=== PATIENT | male | born 1935 | race Caucasian/White ===

== ENCOUNTER 2016-12-18 02:20 | Emergency (ER) | payer MEDICARE, OTHER ==
[2016-12-18] MEDS ORDERED: ALBUTEROL SULFATE/IPRATROPIUM 3 ML NEBU IH ONE ×2 (02:23→02:24)
[2016-12-18 02:35] LABS: Hematocrit 52.3 % (42.0-52.0); Hemoglobin 17.3 gm/dL (13.5-18.0); Mean Cell Volume 89.1 fl (78-100); Mean Corpuscular Hemoglobin 29.5 pg (27-31); Mean Corpuscular Hgb Conc 33.1 g/dl (32-36); Mean Platelet Volume 9.1 fl (6.0-9.5); Neutrophil # 4.2 K/mm3 (1.3-6.0); Neutrophil % 52.5 % (42-75.0); Platelet Count 248 K/mm3 (150-450); Red Blood Count 5.87 M/mm3 (4.7-6.0); Red Cell Distribution Width 14.4 % (11.5-14.0)
--- NOTE | 2016-12-18 02:44 | ERNOTE ---
Dyspnea - General Presenting Symptoms: shortness of breath Time Seen by Provider: 12/18/16 02:23 Source: patient Exam Limitations: no limitations - Immun/Allergies/Home Medications Allergies/Adverse Reactions: Allergies No Known Allergies Allergy (Verified 12/18/16 02:29) Home Medications: HOME MEDICATIONS Albuterol Sulfate [Proair Hfa] 1 - 2 puff IH Q4H PRN 12/18/16 [Last Taken Unknown] Azithromycin 250 mg PO DAILY #4 tablet 12/18/16 [Last Taken Unknown] Methylprednisolone [Medrol Dosepak] 4 mg PO DAILY #21 tab.ds.pk 12/18/16 [Last Taken Unknown] - History of Present Illness Narrative: Pt states he has been short of breath since last Wednesday and has gotten worse. 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 Absent: fever EYE: Present: no symptoms reported ENT: Present: no symptoms reported Respiratory: Present: See HPI, shortness of breath, cough Cardiology: Absent: chest pain Gastrointestinal/Abdominal: Absent: nausea, vomiting Genitourinary: Present: no symptoms reported Musculoskeletal: Present: no symptoms reported Skin: Present: no symptoms reported Neurological: Present: no symptoms reported Endocrine: Present: no symptoms reported Hematologic/Lymphatic: Present: no symptoms reported Psych: Present: no symptoms reported - Patient's Past Medical History Patient History - Cardiac/Respiratory: COPD - Family History Father Family History - Medical: Family History - Cardiac/Respiratory: COPD Family History - Cancer: No pertinent family hx Physical Exam - Physical Exam General Appearance: Present: wd/wn, alert, moderate distress, anxious Head Exam: Present: normal inspection, no evidence of injury Eye Exam: Normal inspection: bilateral Ears, Nose, Throat: Present: normal ENT inspection Neck: Present: normal inspection, nontender Respiratory: Present: respiratory distress, accessory muscle use, rhonchi, wheezing Cardiovascular/Chest: Present: regular rate, rhythm, no murmur, normal peripheral pulses Back Exam: Present: normal inspection, normal range of motion Extremity Exam: Present: normal inspection, normal range of motion, no edema Neurological Exam: Present: alert, oriented, normal mood/affect, no motor/ sensory deficits Skin Exam: Present: normal color, warm/dry Lymphatic Exam: Present: no adenopathy ED Progress - Results and Orders Patient's Lab Results:: I have reviewed the patient's lab results. Results and Orders: Laboratory Tests 12/18/16 12/18/16 02:24 02:24 WBC 8.0 Hgb 17.3 Hct 52.3 H Plt Count 248 Sodium 140 Potassium 4.3 Chloride 104 Carbon Dioxide 26.7 BUN 21 Creatinine 1.40 Random Glucose 112 H Calcium 9.0 Total Bilirubin 0.5 AST 16 ALT 16 L Alkaline Phosphatase 95 Troponin I Less than 0.017 Total Protein 7.5 Albumin 3.7 - EKG EKG: supraventricular tachycardia, RBBB EKG read: Interp. by me - X-Ray X-Ray #1 X-Ray: chest Interpretation: Interp. by me X-ray Comments: Changes of COPD. No infiltrate or effusion - Progress/Reassessment Progress:: Improved Progress Note-Subjective: 12/18/16 03:45 pt breathing much better. no wheezes. Departure Clinical Impression: Acute exacerbation of chronic obstructive pulmonary disease (COPD) - Departure Disposition: Home Follow Up Needed Condition: Good Instructions: Chronic Obstructive Pulmonary Disease Exacerbation, [id number] Additional Instructions: See your primary care provider in a week for follow up. Take advantage of pulmonary rehab to help increase your lung capacity. Take your medications until gone. Prescriptions: Azithromycin 250 mg PO DAILY #4 tablet Methylprednisolone [Medrol Dosepak] 4 mg PO DAILY #21 tab.ds.pk
[2016-12-18 02:53] LABS: ALT 16 U/L (19-67); AST 16 U/L (0-48); Albumin * 3.7 gm/dl (3.4-5.0); Alkaline Phosphatase * 95 U/L (50-170); Anion Gap 13.6 mmol/L (6.8-13.8); Bilirubin, Total 0.5 mg/dL (0.0-1.1); Blood Urea Nitrogen 21 mg/dL (6-23); Ca. Corrected For Albumin 8.9 mg/dL (8.4-10.2); Carbon Dioxide 26.7 mmol/L (24-32.6); Chloride 104 mmol/L (97-106); Glucose * 112 mg/dL (70-110); Potassium 4.3 mmol/L (3.4-4.6); Sodium 140 mmol/L (132-142); Total Protein 7.5 gm/dL (6.2-8.2)
[2016-12-18 02:55] LABS: Troponin I Less than 0.017 ng/ml (0.00-0.10)
[2016-12-18] MEDS ORDERED: METHYLPREDNISOLONE SOD SUCC/PF 125 MG/2 ML VIAL IV ONE (03:26)
[2016-12-18] MEDS ORDERED: METHYLPREDNISOLONE SOD SUCC/PF 125 MG/2 ML VIAL ONE (03:27)
[2016-12-18] MEDS ORDERED: AZITHROMYCIN 250 MG TABLET PO ONE (03:50)
[2016-12-18] MEDS ORDERED: AZITHROMYCIN 250 MG TABLET ONE (03:54)
[2016-12-18 04:11] VITALS: BP 160/88
== END 2016-12-18 04:02 | disposition home or self-care (01) ==
LOC: ER 02:20
DX: J44.1 Chronic obstructive pulmonary disease with (acute) exacerbation (principal)

== ENCOUNTER 2017-02-03 07:50 | Emergency (ER) | payer MEDICARE, OTHER ==
[2017-02-03] MEDS ORDERED: ALBUTEROL SULFATE/IPRATROPIUM 3 ML NEBU IH ONE ×2 (07:54→08:04)
[2017-02-03] MEDS ORDERED: DEXAMETHASONE SOD PHOSPHATE 10 MG/ML VIAL IM ONE (08:10)
[2017-02-03] MEDS ORDERED: ALBUTEROL SULFATE 2.5 MG/0.5 ML VIAL.NEB IH ONE ×2 (08:16→08:19)
[2017-02-03] MEDS ORDERED: DEXAMETHASONE SOD PHOSPHATE 10 MG/ML VIAL ONE (08:16)
[2017-02-03 08:26] LABS: Hemoglobin 15.5 gm/dL (13.5-18.0); Mean Cell Volume 89.7 fl (78-100); Mean Corpuscular Hemoglobin 29.6 pg (27-31); Mean Platelet Volume 8.4 fl (6.0-9.5); Neutrophil # 5.3 K/mm3 (1.3-6.0); Platelet Count 306 K/mm3 (150-450); Red Blood Count 5.24 M/mm3 (4.7-6.0); Red Cell Distribution Width 14.5 % (11.5-14.0); White Blood Count 9.6 K/mm3 (4.0-10.5)
--- NOTE | 2017-02-03 08:26 | ERNOTE ---
Dyspnea - Date Date of Service: 02/03/17 - General Presenting Symptoms: shortness of breath, difficulty of breathing Time Seen by Provider: 02/03/17 08:15 Source: patient, family - Immun/Allergies/Home Medications Immunizations: IMMUNIZATION HX Immunizations Up to Date No History of Influenza Vaccine No Hx Pneumococcal Vaccination No Allergies/Adverse Reactions: Allergies No Known Allergies Allergy (Verified 02/03/17 08:03) Home Medications: HOME MEDICATIONS Albuterol Sulfate [Proair Hfa] 1 - 2 puff IH Q4H PRN 12/18/16 [Last Taken Unknown] Methylprednisolone [Medrol Dosepak] 4 mg PO DAILY #21 tab.ds.pk 02/03/17 [Last Taken Unknown] - History of Present Illness Narrative: Patient is a 41-year-old white male who presents to the emergency room with acute dyspneic episode that started last night. Apparently his dyspnea has gotten worse over the past 3 days. Patient has a past medical history significant for COPD. He is not a smoker currently he quit some years ago. COPD exacerbation was 6 weeks ago. Patient was seen had the emergency room and given antibiotics and a Medrol Dosepak. He presents today complaining of difficulty breathing. He also reports being lightheaded but this is not new for him. In addition dyspnea appears to be chronic for him but is Worse over the past 3 days. 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 Absent: cough, orthopnea, wheezing, stridor Cardiology: Present: See HPI Gastrointestinal/Abdominal: Present: See HPI Genitourinary: Present: See HPI Musculoskeletal: Present: See HPI Skin: Present: See HPI Neurological: Present: See HPI Endocrine: Present: See HPI Hematologic/Lymphatic: Present: See HPI Psych: Present: See HPI - Patient's Past Medical History Patient History - Cardiac/Respiratory: COPD Patient History - Cancer: No Hx of Cancer Patient History - Surgical Procedures: T & A Patient History - Other: None - Family History Father Family History - Medical: Family History - Cardiac/Respiratory: COPD Family History - Cancer: No pertinent family hx - Social History Living Situations: home Abuse History: No History of abuse Psych History: Hx of Depression Alcohol Use: none Drug Use: none - Immunizations Immunizations Up to Date: No Hx Pneumococcal Vaccination: No History of Influenza Vaccine: No Physical Exam - Physical Exam General Appearance: Present: mild distress Head Exam: Present: normal inspection, no evidence of injury Eye Exam: Normal inspection: bilateral, PERRL: bilateral, EOMI: bilateral Ears, Nose, Throat: Present: normal ENT inspection Neck: Present: normal inspection, nontender Respiratory: Present: accessory muscle use, decreased breath sounds, expiration (prolonged) Cardiovascular/Chest: Present: no murmur, tachycardia Gastrointestinal/Abdominal: Present: normal bowel sounds, nontender, nondistended Back Exam: Present: normal inspection, normal range of motion, no CVA tenderness , no vertebral tenderness Extremity Exam: Present: normal inspection Neurological Exam: Present: alert, oriented, normal mood/affect, no motor/ sensory deficits ED Progress - Results and Orders Patient's Lab Results:: I have reviewed the patient's lab results. - Vital Signs Patient's Vital Signs:: I have reviewed the patient's vital signs. Vital Signs: Vital Signs 02/03/17 02/03/17 02/03/17 07:54 08:09 08:11 Temperature 36.2 C L Pulse Rate 114 H 114 H 114 H Respiratory 24 H 24 H Rate Blood Pressure 150/93 O2 Sat by Pulse 93 94 Oximetry - EKG EKG: other - sinus tachycardia with right bundle branch block. There is no EKG for comparison EKG read: Reviewed by me - X-Ray X-Ray #1 X-Ray: chest Interpretation: Reviewed by me - Progress/Reassessment Chief Complaint: Dyspnea Progress:: Improved Progress Note-Subjective: 02/03/17 09:22 Patient seen and examined. Patient during his emergency room stay received DuoNeb 1 and albuterol times one. During my assessment he was shaking and tremors likely due to the side effects of albuterol. Subjectively he felt better. Patient is taking Anoro. He has been noncompliant with his Spiriva though. Also has been noncompliant with his albuterol with spacer. I did provide some education regarding his needs to continue his albuterol which spaces every 6 hours. Also recommended starting him on prednisone 50 mg by mouth daily for 10 days but he preferred the Medrol Dosepak. Was seated and prescribe his Medrol Dosepak. He is tachycardic at this point. His blood work appeared unremarkable as was his chest x-ray. There is no pneumonic process going. It is likely due to his dyspnea. All side effect of his albuterol. Regardless we'll proceed at discharge patient and have her follow up with his insurance adjuster tomorrow 02/03/17 09:41 We ambulated the patient in the emergency room without oxygen and he appears to be saturating in the 94%. He wasn't hypoxic Departure Clinical Impression: COPD with acute exacerbation - Departure Disposition: Home self-care Condition: Stable Instructions: Chronic Obstructive Pulmonary Disease Exacerbation, [id number] Prescriptions: Methylprednisolone [Medrol Dosepak] 4 mg PO DAILY #21 tab.ds.pk
[2017-02-03 08:37] LABS: Albumin * 3.4 gm/dl (3.4-5.0); Anion Gap 11.8 mmol/L (6.8-13.8); BUN/Creatinine Ratio 13.8 (9.0-21.6); Bilirubin, Total 0.4 mg/dL (0.0-1.1); Ca. Corrected For Albumin 9.4 mg/dL (8.4-10.2); Calcium * 9.2 mg/dL (7.9-10.9); Carbon Dioxide 28.2 mmol/L (24-32.6); Total Protein 7.5 gm/dL (6.2-8.2)
[2017-02-03 09:21] VITALS: BP 109/61
== END 2017-02-03 09:59 | disposition home or self-care (01) ==
LOC: ER 07:50
DX: J44.1 Chronic obstructive pulmonary disease with (acute) exacerbation (principal); Z87.891 Personal history of nicotine dependence

== ENCOUNTER 2020-05-19 18:58 | Observation (INO) ==
[2020-05-19] MEDS ORDERED: ALBUTEROL SULFATE/IPRATROPIUM 3 ML NEBU IH ONE (19:19)
[2020-05-19] MEDS ORDERED: METHYLPREDNISOLONE SOD SUCC/PF 125 MG/2 ML VIAL IV ONE (19:19)
--- NOTE | 2020-05-19 19:25 | ERNOTE ---
Dyspnea - Date Date of Service: 05/19/20 - General Presenting Symptoms: shortness of breath Time Seen by Provider: 05/19/20 19:03 Source: patient Exam Limitations: no limitations - Immun/Allergies/Home Medications Immunizations: IMMUNIZATION HX Immunizations Up to Date Yes History of Influenza Vaccine Yes Hx Pneumococcal Vaccination Yes Allergies/Adverse Reactions: Allergies No Known Allergies Allergy (Verified 05/19/20 19:12) Home Medications: HOME MEDICATIONS Albuterol Sulfate [Albuterol Sulfate 2.5 MG/0.5ML] 1 vial IH Q4H #30 vial 09/14/17 [Last Taken Unknown] Albuterol Sulfate/Ipratropium [Duoneb 2.5-0.5MG/3ML Soln] 3 ml IH QID #150 vial 11/06/17 [Last Taken Unknown] Albuterol Sulfate [Albuterol Sulfate 0.63 MG/3ML] 0.63 mg IH Q4H PRN #120 vial[email or web address] 03/27/20 [Last Taken Unknown] Budesonide 1 mg IH Q6H PRN #40 ampul.[email or web address] 03/27/20 [Last Taken Unknown] predniSONE [Prednisone] 5 mg PO DAILY 05/19/20 [Last Taken Unknown] - History of Present Illness Narrative: Patient presents to the ED for SOB. He states this is just like when his COPD acts up. He relates he will get steroids and feel better. This has been worsening over a couple of days. SOB with exertion. When he walked in here he apparently had significant work of breathing and sat in the 80s. Now better with rest. Some cough, no fever. No hemoptysis. No calf pain or leg swelling. Not on home O2. Relates overall progressive SOB for years then gets acute bouts like this. No chest pain but lung tightness. Has not seen anyone else for this bout. No calf pain or leg swelling. 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 Denies: fever/chills, sweating, chest pain/discomfort, leg/calf pain Prior Treatment: Reports: previous episodes. Denies: recently seen Review of Systems - Review of Systems Constitutional: Absent: fever EYE: Present: no symptoms reported ENT: Absent: sore throat Respiratory: Present: See HPI Cardiology: Absent: chest pain Gastrointestinal/Abdominal: Absent: abdominal pain Genitourinary: Absent: dysuria All Other Systems: All systems neg except as marked Medical History (Last Reviewed 05/19/20 @ 19:23 by Sánchez Post MD) COPD (chronic obstructive pulmonary disease) Hx of fracture of ankle Pneumonia Surgical History: Surgical History (Last Reviewed 05/19/20 @ 19:23 by Sánchez oPst MD) History of prostate surgery History of tonsillectomy and adenoidectomy Previous back surgery Family History: Family History (Last Reviewed 05/19/20 @ 19:23 by Sánchez Post MD) Other Family history non-contributory Social History: (Last Reviewed 05/19/20 @ 19:23 by Sánchez Post MD) Social History: adopted: No foster care: No assisted: No Marital status: lives independently: Yes household members: spouse current occupational status: retired Tobacco: Smoking Status: Former smoker Years smoked: 60 Years smoked comment: pt states he quit 2 years ago Alcohol: alcohol intake: never Substance Use: substance use type: does not use Physical Exam - Physical Exam General Appearance: Present: alert, other - mild tachypnea Head Exam: Present: normal inspection, no evidence of injury Eye Exam: Normal inspection: bilateral, PERRL: bilateral Ears, Nose, Throat: Present: normal ENT inspection Neck: Present: normal inspection Respiratory: Present: other - mild tachypnea, scattered faint wheezes. Cardiovascular/Chest: Present: regular rate, rhythm, normal peripheral pulses Gastrointestinal/Abdominal: Present: normal bowel sounds, nontender, nondistended, soft Back Exam: Absent: CVA tenderness (R), CVA tenderness (L) Extremity Exam: Absent: pedal edema Neurological Exam: Present: alert, no motor/sensory deficits Skin Exam: Present: normal color, warm/dry. Absent: pallor Progress - Results and Orders Patient's Lab Results:: I have reviewed the patient's lab results. - Vital Signs Patient's Vital Signs:: I have reviewed the patient's vital signs. Vital Signs: Vital Signs 05/19/20 18:59 05/19/20 19:19 Temperature 36.6 C Pulse Rate 107 H 96 Respiratory Rate 21 H Blood Pressure 189/106 H O2 Sat by Pulse Oximetry 80 L - EKG EKG #1 EKG: NSR EKG read: Interp. by me EKG Comments: NSR rate 98 with ectopy. RBBB, no clear evidence of STEMI - Progress/Reassessment Chief Complaint: Dyspnea - Transfer of Care Physician Sign Out: Sánchez Post Receiving Physician: Vinayak Gomez Pending Results: Labs, X-ray results Departure Clinical Impression: COPD exacerbation - Departure Disposition: Still a patient Condition: Fair Referrals: Taty Piña MD [Primary Care Provider] -
[2020-05-19] MEDS ORDERED: ALBUTEROL SULFATE 2.5 MG/0.5 ML VIAL.NEB IH ONE (19:45)
[2020-05-19 19:51] LABS: Hematocrit 50.8 % (42.0-52.0); Hemoglobin 16.5 gm/dL (13.5-18.0); Mean Cell Volume 89.3 fl (78-100); Mean Corpuscular Hgb Conc 32.5 g/dl (32-36); Mean Platelet Volume 9.1 fl (8-11.3); Neutrophil # 8.4 K/mm3 (1.3-6.0); Neutrophil % 69.2 % (42-75.0); Platelet Count 288 K/mm3 (150-450); Red Blood Count 5.69 M/mm3 (4.7-6.0); Red Cell Distribution Width 15.7 % (11.5-14.0); White Blood Count 12.1 K/mm3 (4.0-10.5)
[2020-05-19 20:10] LABS: Troponin I Less than 0.017 ng/mL (0.00-0.10)
[2020-05-19 20:11] LABS: ALT 21 U/L (19-67); AST 32 U/L (0-48); Albumin * 3.7 gm/dl (3.4-5.0); Alkaline Phosphatase * 78 U/L (50-170); Anion Gap 15.5 mmol/L (6.8-13.8); BNP * 349 pg/mL (5-650); BUN/Creatinine Ratio 14.4 (9.0-21.6); Bilirubin, Total 0.6 mg/dL (0.0-1.1); Blood Urea Nitrogen 26 mg/dL (6-23); Ca. Corrected For Albumin 9.6 mg/dL (8.4-10.2); Calcium * 9.7 mg/dL (7.9-10.9); Carbon Dioxide 26.7 mmol/L (24-32.6); Chloride 103 mmol/L (97-106); Glucose * 114 mg/dL (70-110); Potassium 4.2 mmol/L (3.4-4.6); Sodium 141 mmol/L (132-142); Total Protein 7.4 gm/dL (6.2-8.2)
[2020-05-19] MEDS ORDERED: NORMAL SALINE 1,000 ML IV ONE (20:48)
[2020-05-19] MEDS ORDERED: cefTRIAXone SODIUM 1,000 MG/100 ML BAG IV ONE (21:25)
[2020-05-19] MEDS ORDERED: AZITHROMYCIN 250 MG TABLET PO ONE (23:04)
[2020-05-20] MEDS: NORMAL SALINE 1,000 ML IV PRN ×2 (00:10→08:32)
[2020-05-20] MEDS ORDERED: BUDESONIDE 0.5 MG/2 ML VIAL.NEB IH PRN (07:32)
[2020-05-20] MEDS: ALBUTEROL SULFATE/IPRATROPIUM 3 ML NEBU IH SCH ×3 (07:52→14:25)
[2020-05-20] MEDS ORDERED: NORMAL SALINE 500 ML IV ONE (08:39)
[2020-05-20 08:57] LABS: Albumin * 3.3 gm/dl (3.4-5.0); Anion Gap 17.7 mmol/L (6.8-13.8); BUN/Creatinine Ratio 15.2 (9.0-21.6); Bilirubin, Total 0.4 mg/dL (0.0-1.1); Calcium * 8.8 mg/dL (7.9-10.9); Carbon Dioxide 22.7 mmol/L (24-32.6); Potassium 5.4 mmol/L (3.4-4.6); Total Protein 6.2 gm/dL (6.2-8.2)
[2020-05-20] MEDS ORDERED: predniSONE 20 MG TABLET PO SCH (09:00)
[2020-05-20] MEDS ORDERED: AZITHROMYCIN 250 MG TABLET PO SCH (09:00)
--- NOTE | 2020-05-20 09:35 | HP ---
Chief Complaint - Chief Complaint Date of Service: 05/20/20 Time of Service: 08:50 Chief Complaint: shortness of breath, cough Medical History (Last Reviewed 05/19/20 @ 23:43 by Olivia Pierce RN) COPD (chronic obstructive pulmonary disease) Hx of fracture of ankle Pneumonia Surgical History: Surgical History (Last Reviewed 05/19/20 @ 23:43 by Olivia Pierce RN) History of prostate surgery History of tonsillectomy and adenoidectomy Previous back surgery Family History: Family History (Last Reviewed 05/19/20 @ 23:43 by Olivia Pierce RN) Other Family history non-contributory Social History: (Last Reviewed 05/19/20 @ 23:43 by Olivia Pierce RN) Social History: adopted: No foster care: No alf: No Marital status: lives independently: Yes household members: spouse current occupational status: retired Tobacco: Smoking Status: Former smoker Years smoked: 60 Years smoked comment: pt states he quit 2 years ago Alcohol: alcohol intake: never Substance Use: substance use type: does not use Immunizations: IMMUNIZATION HX Immunizations Up to Date Yes History of Influenza Vaccine Yes Hx Pneumococcal Vaccination Yes Allergies/Adverse Reactions: Allergies Allergy/AdvReac Type Severity Reaction Status Date / Time No Known Allergies Allergy Verified 05/19/20 19:12 Home Medications: HOME MEDICATIONS Albuterol Sulfate [Albuterol Sulfate 2.5 MG/0.5ML] 1 vial IH Q4H #30 vial 09/14/17 [Last Taken 05/19/20] Albuterol Sulfate/Ipratropium [Duoneb 2.5-0.5MG/3ML Soln] 3 ml IH QID #150 vial 11/06/17 [Last Taken 05/19/20] Albuterol Sulfate [Albuterol Sulfate 0.63 MG/3ML] 0.63 mg IH Q4H PRN #120 vial.neb 03/27/20 [Last Taken 05/19/20] Budesonide 1 mg IH Q6H PRN #40 ampul.neb 03/27/20 [Last Taken 05/19/20] predniSONE [Prednisone] 5 mg PO DAILY 05/19/20 [Last Taken 05/19/20] Exam - Exam Vital Signs: Vital Signs - Last Taken Temp 36.6 C 05/20/20 07:16 Pulse 96 05/20/20 07:52 Resp 24 H 05/20/20 07:52 BP 176/93 H 05/20/20 07:16 Pulse Ox 95 05/20/20 07:52 Diagnostic Studies: Abnormal Lab Results 05/19/20 05/19/20 05/19/20 Range/Units 19:05 19:05 19:05 WBC 12.1 H (4.0-10.5) K/mm3 RDW 15.7 H (11.5-14.0) % Immature Gran % (Auto) 0.60 H (0.001-0.429) % Immature Gran # (Auto) 0.07 H (0.000-0.0310) K/mm3 Lymphocytes % 15.4 L (20-51) % Monocytes % 9.4 H (0.0-9) % Eosinophils % 4.3 H (0.0-3.0) % Basophils % 1.1 H (0.0-1.0) % Neutrophils # 8.4 H (1.3-6.0) K/mm3 Monocytes # 1.1 H (0.0-1.0) k/mm3 Plasma Sodium (130-142) mmol/L Potassium (3.4-4.6) mmol/L Chloride (97-106) mmol/L Carbon Dioxide (24-32.6) mmol/L Anion Gap 15.5 H (6.8-13.8) mmol/L BUN 26 H (6-23) mg/dL Creatinine 1.80 H (0.4-1.4) mg/dL Est GFR (Non-Af Amer) 39 L (60-130) mL/min Random Glucose 114 H (70-110) mg/dL Lactic Acid, Venous 2.3 H* (0.4-2.0) mmol/L Albumin (3.4-5.0) gm/dl Procalcitonin (0.05-0.50) ng/mL 05/19/20 05/20/20 05/20/20 Range/Units 22:45 08:00 08:03 WBC (4.0-10.5) K/mm3 RDW (11.5-14.0) % Immature Gran % (Auto) (0.001-0.429) % Immature Gran # (Auto) (0.000-0.0310) K/mm3 Lymphocytes % (20-51) % Monocytes % (0.0-9) % Eosinophils % (0.0-3.0) % Basophils % (0.0-1.0) % Neutrophils # (1.3-6.0) K/mm3 Monocytes # (0.0-1.0) k/mm3 Plasma Sodium 143 H (130-142) mmol/L Potassium 5.4 H D (3.4-4.6) mmol/L Chloride 107 H (97-106) mmol/L Carbon Dioxide 22.7 L (24-32.6) mmol/L Anion Gap 17.7 H (6.8-13.8) mmol/L BUN 25 H (6-23) mg/dL Creatinine 1.64 H (0.4-1.4) mg/dL Est GFR (Non-Af Amer) 43 L (60-130) mL/min Random Glucose 163 H D (70-110) mg/dL Lactic Acid, Venous 2.1 H (0.4-2.0) mmol/L Albumin 3.3 L (3.4-5.0) gm/dl Procalcitonin Less than 0.05 L (0.05-0.50) ng/mL 05/20/20 Range/Units 08:03 WBC (4.0-10.5) K/mm3 RDW (11.5-14.0) % Immature Gran % (Auto) (0.001-0.429) % Immature Gran # (Auto) (0.000-0.0310) K/mm3 Lymphocytes % (20-51) % Monocytes % (0.0-9) % Eosinophils % (0.0-3.0) % Basophils % (0.0-1.0) % Neutrophils # (1.3-6.0) K/mm3 Monocytes # (0.0-1.0) k/mm3 Plasma Sodium (130-142) mmol/L Potassium (3.4-4.6) mmol/L Chloride (97-106) mmol/L Carbon Dioxide (24-32.6) mmol/L Anion Gap (6.8-13.8) mmol/L BUN (6-23) mg/dL Creatinine (0.4-1.4) mg/dL Est GFR (Non-Af Amer) (60-130) mL/min Random Glucose (70-110) mg/dL Lactic Acid, Venous 3.5 H* (0.4-2.0) mmol/L Albumin (3.4-5.0) gm/dl Procalcitonin (0.05-0.50) ng/mL Laboratory Results WBC 12.1 K/mm3 (4.0-10.5) H 05/19/20 19:05 RBC 5.69 M/mm3 (4.7-6.0) 05/19/20 19:05 Hgb 16.5 gm/dL (13.5-18.0) 05/19/20 19:05 Hct 50.8 % (42.0-52.0) 05/19/20 19:05 MCV 89.3 fl (78-100) 05/19/20 19:05 MCH 29.0 pg (27-31) 05/19/20 19:05 MCHC 32.5 g/dl (32-36) 05/19/20 19:05 RDW 15.7 % (11.5-14.0) H 05/19/20 19:05 Plt Count 288 K/mm3 (150-450) 05/19/20 19:05 MPV 9.1 fl (8-11.3) 05/19/20 19:05 Immature Gran % (Auto) 0.60 % (0.001-0.429) H 05/19/20 19:05 Immature Gran # (Auto) 0.07 K/mm3 (0.000-0.0310) H 05/19/20 19:05 Neutrophils % 69.2 % (42-75.0) 05/19/20 19:05 Lymphocytes % 15.4 % (20-51) L 05/19/20 19:05 Monocytes % 9.4 % (0.0-9) H 05/19/20 19:05 Eosinophils % 4.3 % (0.0-3.0) H 05/19/20 19:05 Basophils % 1.1 % (0.0-1.0) H 05/19/20 19:05 Nucleated RBC % 0.0 k/mm3 (0-1) 05/19/20 19:05 Neutrophils # 8.4 K/mm3 (1.3-6.0) H 05/19/20 19:05 Lymphocytes # 1.86 k/mm3 (1.5-3.5) 05/19/20 19:05 Monocytes # 1.1 k/mm3 (0.0-1.0) H 05/19/20 19:05 Eosinophils # 0.5 k/mm3 (0.0-0.7) 05/19/20 19:05 Absolute Basophils 0.1 k/mm3 (0.0-0.1) 05/19/20 19:05 Sodium 142 mmol/L (132-142) 05/20/20 08:03 Plasma Sodium 143 mmol/L (130-142) H 05/20/20 08:03 Potassium 5.4 mmol/L (3.4-4.6) H D 05/20/20 08:03 Chloride 107 mmol/L (97-106) H 05/20/20 08:03 Carbon Dioxide 22.7 mmol/L (24-32.6) L 05/20/20 08:03 Anion Gap 17.7 mmol/L (6.8-13.8) H 05/20/20 08:03 BUN 25 mg/dL (6-23) H 05/20/20 08:03 Creatinine 1.64 mg/dL (0.4-1.4) H 05/20/20 08:03 Est GFR (Non-Af Amer) 43 mL/min (60-130) L 05/20/20 08:03 BUN/Creatinine Ratio 15.2 (9.0-21.6) 05/20/20 08:03 Random Glucose 163 mg/dL (70-110) H D 05/20/20 08:03 Lactic Acid, Venous 3.5 mmol/L (0.4-2.0) H* 05/20/20 08:03 Calcium 8.8 mg/dL (7.9-10.9) 05/20/20 08:03 Calcium Adj for Albumin 9.0 mg/dL (8.4-10.2) 05/20/20 08:03 Total Bilirubin 0.4 mg/dL (0.0-1.1) 05/20/20 08:03 AST 26 U/L (0-48) 05/20/20 08:03 ALT 19 U/L (19-67) 05/20/20 08:03 Alkaline Phosphatase 71 U/L (50-170) 05/20/20 08:03 Troponin I Less than 0.017 ng/mL (0.00-0.10) 05/19/20 19:05 B-Natriuretic Peptide 349 pg/mL (5-650) 05/19/20 19:05 Total Protein 6.2 gm/dL (6.2-8.2) 05/20/20 08:03 Albumin 3.3 gm/dl (3.4-5.0) L 05/20/20 08:03 Procalcitonin Less than 0.05 ng/mL (0.05-0.50) L 05/20/20 08:00 SARS-CoV-2 (PCR) Not detected (NotDetected) 05/19/20 21:31
[2020-05-20] MEDS: ALBUTEROL SULFATE 2.5 MG/0.5 ML VIAL.NEB IH SCH ×2 (11:29→14:26)
--- NOTE | 2020-05-20 14:17 | HPDIS ---
Chief Complaint - Chief Complaint Date of Service: 05/20/20 Time of Service: 09:30 Chief Complaint: SOB, cough History of Present Illness: Patient with PMHx of COPD presented to our ED after a week of increased SOB and cough. He has SOB at baseline, but it worsened over the week. This happens at times, but sometimes resolves on its own. It persisted this time, so he came to the ED. He's had increased phlegm and wheeze. He used his nebulizer about 6 times yesterday. He was previously established with pulmonology, but he didn't feel like they were very helpful. He reports having two different studies to determine if he needed oxygen, and one was positive and one was negative. He didn't feel like the oxygen was helpful, so he doesn't use it. He was previously prescribed symbicort, but doesn't feel like that is beneficial either . In the ED, his oxygen was 80% briefly. He reports being given oxygen, but this is not documented. CXR showed hyperinflation. Labs showed mild WBC of 12.1, procalcitonin not elevated at 0.05, mild JAELYN with creatinine of 1.8 and GFR of 39, lactate of 2.5. He was given fluids at 125 cc/hr, a dose of 125 mg solumedrol, a dose of rocephin and a dose of azithromycin. The morning following admission, his breathing had improved and he had improvement with his JAELYN. Lungs were clear, no wheeze on exam, and he was not requiring oxygen. ERP documented sepsis, but he did not appear septic on my e xam. WBC elevated was very mild, and procalcitonin not elevated, making a systemic infection and sepsis less likely. Pulse and HR had normalized. Lactate fluctuated, but improved with fluids. Per his previous pulmonology note, he is to take 500 mg azithromycin MW. He hasn't taken this since it was last prescribed, so he hasn't been taking it regularly, but agreed with restarting at this dose. He was on daily prednisone, and he has been weaning himself. Will DC with 60 mg prednisone, and will gradually taper. Will send 60 mg for 4 days, 40 mg for 5 days, 20 mg for 5 days, and 10 mg for 5 days. Pulmonology note from June 2019 suggested eventually weaning off the prednisone. Offered to get him another appointment with pulmonology, but he'd rather have a primary physician to manage his COPD. Cardiopulmonary rehab offered, but he declined. Medical History (Last Reviewed 05/19/20 @ 23:43 by Olivia Pierce RN) COPD (chronic obstructive pulmonary disease) Hx of fracture of ankle Pneumonia Surgical History: Surgical History (Last Reviewed 05/19/20 @ 23:43 by Olivia Pierce RN) History of prostate surgery History of tonsillectomy and adenoidectomy Previous back surgery Family History: Family History (Last Reviewed 05/19/20 @ 23:43 by Olivia Pierce RN) Other Family history non-contributory Social History: (Last Reviewed 05/19/20 @ 23:43 by Olivia Pierce RN) Social History: adopted: No foster care: No halfway: No Marital status: lives independently: Yes household members: spouse current occupational status: retired Tobacco: Smoking Status: Former smoker Years smoked: 60 Years smoked comment: pt states he quit 2 years ago Alcohol: alcohol intake: never Substance Use: substance use type: does not use Review Of Systems (GEN) - Review of Systems Generalized/Overall Review: Absent: Fever Respiratory: Present: Cough, Shortness of Breath Cardiac: Absent: Chest Pain, Edema Abdominal: Present: No Symptoms Reported Genitourinary: Present: No Symptoms Reported Musculoskeletal: Present: No Symptoms Reported Neurological: Present: No Symptoms Reported Immunizations: IMMUNIZATION HX Immunizations Up to Date Yes History of Influenza Vaccine Yes Hx Pneumococcal Vaccination Yes Allergies/Adverse Reactions: Allergies Allergy/AdvReac Type Severity Reaction Status Date / Time No Known Allergies Allergy Verified 05/19/20 19:12 Home Medications: HOME MEDICATIONS Albuterol Sulfate [Albuterol Sulfate 2.5 MG/0.5ML] 1 vial IH Q4H #30 vial 09/14/17 [Last Taken 05/19/20] Albuterol Sulfate/Ipratropium [Duoneb 2.5-0.5MG/3ML Soln] 3 ml IH QID #150 vial 11/06/17 [Last Taken 05/19/20] Albuterol Sulfate [Albuterol Sulfate 0.63 MG/3ML] 0.63 mg IH Q4H PRN #120 vial.neb 03/27/20 [Last Taken 05/19/20] Budesonide 1 mg IH Q6H PRN #40 ampul.neb 03/27/20 [Last Taken 05/19/20] predniSONE [Prednisone] 5 mg PO DAILY 05/19/20 [Last Taken 05/19/20] Azithromycin 500 mg PO 3XW #45 tab 05/20/20 [Last Taken Unknown] predniSONE [Prednisone] 20 mg PO DAILY #30 tab 05/20/20 [Last Taken Unknown] Exam - Exam Vital Signs: Vital Signs - Last Taken Temp 37.0 C 05/20/20 10:21 Pulse 84 05/20/20 11:24 Resp 18 05/20/20 11:24 BP 156/77 H 05/20/20 10:21 Pulse Ox 96 05/20/20 11:24 Constitutional: Present: Alert, Cooperative, No distress, Elderly ENT Exam: Present: hard of hearing Respiratory: Present: no respiratory distress, decreased breath sounds, No wheezing Cardiovascular/Chest: Present: regular rate, rhythm Abdomen: Present: soft. Absent: tender Extremity: Absent: lower extremity edema Neurologic: Present: normal mood/affect Eye contact: Present: cooperative, good eye contact Diagnostic Studies: Abnormal Lab Results 05/19/20 05/19/20 05/19/20 Range/Units 19:05 19:05 19:05 WBC 12.1 H (4.0-10.5) K/mm3 RDW 15.7 H (11.5-14.0) % Immature Gran % (Auto) 0.60 H (0.001-0.429) % Immature Gran # (Auto) 0.07 H (0.000-0.0310) K/mm3 Lymphocytes % 15.4 L (20-51) % Monocytes % 9.4 H (0.0-9) % Eosinophils % 4.3 H (0.0-3.0) % Basophils % 1.1 H (0.0-1.0) % Neutrophils # 8.4 H (1.3-6.0) K/mm3 Monocytes # 1.1 H (0.0-1.0) k/mm3 Plasma Sodium (130-142) mmol/L Potassium (3.4-4.6) mmol/L Chloride (97-106) mmol/L Carbon Dioxide (24-32.6) mmol/L Anion Gap 15.5 H (6.8-13.8) mmol/L BUN 26 H (6-23) mg/dL Creatinine 1.80 H (0.4-1.4) mg/dL Est GFR (Non-Af Amer) 39 L (60-130) mL/min Random Glucose 114 H (70-110) mg/dL Lactic Acid, Venous 2.3 H* (0.4-2.0) mmol/L Albumin (3.4-5.0) gm/dl Procalcitonin (0.05-0.50) ng/mL 05/19/20 05/20/20 05/20/20 Range/Units 22:45 08:00 08:03 WBC (4.0-10.5) K/mm3 RDW (11.5-14.0) % Immature Gran % (Auto) (0.001-0.429) % Immature Gran # (Auto) (0.000-0.0310) K/mm3 Lymphocytes % (20-51) % Monocytes % (0.0-9) % Eosinophils % (0.0-3.0) % Basophils % (0.0-1.0) % Neutrophils # (1.3-6.0) K/mm3 Monocytes # (0.0-1.0) k/mm3 Plasma Sodium 143 H (130-142) mmol/L Potassium 5.4 H D (3.4-4.6) mmol/L Chloride 107 H (97-106) mmol/L Carbon Dioxide 22.7 L (24-32.6) mmol/L Anion Gap 17.7 H (6.8-13.8) mmol/L BUN 25 H (6-23) mg/dL Creatinine 1.64 H (0.4-1.4) mg/dL Est GFR (Non-Af Amer) 43 L (60-130) mL/min Random Glucose 163 H D (70-110) mg/dL Lactic Acid, Venous 2.1 H (0.4-2.0) mmol/L Albumin 3.3 L (3.4-5.0) gm/dl Procalcitonin Less than 0.05 L (0.05-0.50) ng/mL 05/20/20 05/20/20 Range/Units 08:03 12:22 WBC (4.0-10.5) K/mm3 RDW (11.5-14.0) % Immature Gran % (Auto) (0.001-0.429) % Immature Gran # (Auto) (0.000-0.0310) K/mm3 Lymphocytes % (20-51) % Monocytes % (0.0-9) % Eosinophils % (0.0-3.0) % Basophils % (0.0-1.0) % Neutrophils # (1.3-6.0) K/mm3 Monocytes # (0.0-1.0) k/mm3 Plasma Sodium (130-142) mmol/L Potassium (3.4-4.6) mmol/L Chloride (97-106) mmol/L Carbon Dioxide (24-32.6) mmol/L Anion Gap (6.8-13.8) mmol/L BUN (6-23) mg/dL Creatinine (0.4-1.4) mg/dL Est GFR (Non-Af Amer) (60-130) mL/min Random Glucose (70-110) mg/dL Lactic Acid, Venous 3.5 H* 2.3 H* (0.4-2.0) mmol/L Albumin (3.4-5.0) gm/dl Procalcitonin (0.05-0.50) ng/mL Laboratory Results WBC 12.1 K/mm3 (4.0-10.5) H 05/19/20 19:05 RBC 5.69 M/mm3 (4.7-6.0) 05/19/20 19:05 Hgb 16.5 gm/dL (13.5-18.0) 05/19/20 19:05 Hct 50.8 % (42.0-52.0) 05/19/20 19:05 MCV 89.3 fl (78-100) 05/19/20 19:05 MCH 29.0 pg (27-31) 05/19/20 19:05 MCHC 32.5 g/dl (32-36) 05/19/20 19:05 RDW 15.7 % (11.5-14.0) H 05/19/20 19:05 Plt Count 288 K/mm3 (150-450) 05/19/20 19:05 MPV 9.1 fl (8-11.3) 05/19/20 19:05 Immature Gran % (Auto) 0.60 % (0.001-0.429) H 05/19/20 19:05 Immature Gran # (Auto) 0.07 K/mm3 (0.000-0.0310) H 05/19/20 19:05 Neutrophils % 69.2 % (42-75.0) 05/19/20 19:05 Lymphocytes % 15.4 % (20-51) L 05/19/20 19:05 Monocytes % 9.4 % (0.0-9) H 05/19/20 19:05 Eosinophils % 4.3 % (0.0-3.0) H 05/19/20 19:05 Basophils % 1.1 % (0.0-1.0) H 05/19/20 19:05 Nucleated RBC % 0.0 k/mm3 (0-1) 05/19/20 19:05 Neutrophils # 8.4 K/mm3 (1.3-6.0) H 05/19/20 19:05 Lymphocytes # 1.86 k/mm3 (1.5-3.5) 05/19/20 19:05 Monocytes # 1.1 k/mm3 (0.0-1.0) H 05/19/20 19:05 Eosinophils # 0.5 k/mm3 (0.0-0.7) 05/19/20 19:05 Absolute Basophils 0.1 k/mm3 (0.0-0.1) 05/19/20 19:05 Sodium 142 mmol/L (132-142) 05/20/20 08:03 Plasma Sodium 143 mmol/L (130-142) H 05/20/20 08:03 Potassium 5.4 mmol/L (3.4-4.6) H D 05/20/20 08:03 Chloride 107 mmol/L (97-106) H 05/20/20 08:03 Carbon Dioxide 22.7 mmol/L (24-32.6) L 05/20/20 08:03 Anion Gap 17.7 mmol/L (6.8-13.8) H 05/20/20 08:03 BUN 25 mg/dL (6-23) H 05/20/20 08:03 Creatinine 1.64 mg/dL (0.4-1.4) H 05/20/20 08:03 Est GFR (Non-Af Amer) 43 mL/min (60-130) L 05/20/20 08:03 BUN/Creatinine Ratio 15.2 (9.0-21.6) 05/20/20 08:03 Random Glucose 163 mg/dL (70-110) H D 05/20/20 08:03 Lactic Acid, Venous 2.3 mmol/L (0.4-2.0) H* 05/20/20 12:22 Calcium 8.8 mg/dL (7.9-10.9) 05/20/20 08:03 Calcium Adj for Albumin 9.0 mg/dL (8.4-10.2) 05/20/20 08:03 Total Bilirubin 0.4 mg/dL (0.0-1.1) 05/20/20 08:03 AST 26 U/L (0-48) 05/20/20 08:03 ALT 19 U/L (19-67) 05/20/20 08:03 Alkaline Phosphatase 71 U/L (50-170) 05/20/20 08:03 Troponin I Less than 0.017 ng/mL (0.00-0.10) 05/19/20 19:05 B-Natriuretic Peptide 349 pg/mL (5-650) 05/19/20 19:05 Total Protein 6.2 gm/dL (6.2-8.2) 05/20/20 08:03 Albumin 3.3 gm/dl (3.4-5.0) L 05/20/20 08:03 Procalcitonin Less than 0.05 ng/mL (0.05-0.50) L 05/20/20 08:00 SARS-CoV-2 (PCR) Not detected (NotDetected) 05/19/20 21:31 Assessment/Plan - Narrative Narrative: see above - Assessment/Plan (1) Acute exacerbation of chronic obstructive pulmonary disease (COPD) Problem: Acute (1) Acute exacerbation of chronic obstructive pulmonary disease (COPD) Problem: Resolved Date of Discharge:: 05/20/20 Hospital Course: see above for narrative. H&P/DC today required 60 minutes with obtaining history, physical exam, chart review, and note writing. Procedures Performed: none Results and Findings: Lab Pending Results 05/19/20 19:05: WBC 12.1 H, RBC 5.69, Hgb 16.5, Hct 50.8, MCV 89.3, MCH 29.0, MCHC 32.5, RDW 15.7 H, Plt Count 288, MPV 9.1, Immature Gran % (Auto) 0.60 H, Immature Gran # (Auto) 0.07 H, Neutrophils % 69.2, Lymphocytes % 15.4 L, Monocytes % 9.4 H, Eosinophils % 4.3 H, Basophils % 1.1 H, Nucleated RBC % 0.0, Neutrophils # 8.4 H, Lymphocytes # 1.86, Monocytes # 1.1 H, Eosinophils # 0.5, Absolute Basophils 0.1 05/19/20 19:05: Sodium 141, Plasma Sodium 141, Potassium 4.2, Chloride 103, Carbon Dioxide 26.7, Anion Gap 15.5 H, BUN 26 H, Creatinine 1.80 H, Est GFR (Non-Af Amer) 39 L, BUN/Creatinine Ratio 14.4, Random Glucose 114 H, Calcium 9.7, Calcium Adj for Albumin 9.6, Total Bilirubin 0.6, AST 32, ALT 21, Alkaline Phosphatase 78, Troponin I Less than 0.017, B-Natriuretic Peptide 349, Total Protein 7.4, Albumin 3.7 05/19/20 19:05: Lactic Acid, Venous 2.3 H* 05/19/20 21:31: SARS-CoV-2 (PCR) Not detected 05/19/20 22:45: Lactic Acid, Venous 2.1 H 05/20/20 08:00: Procalcitonin Less than 0.05 L 05/20/20 08:03: Sodium 142, Plasma Sodium 143 H, Potassium 5.4 H D, Chloride 107 H, Carbon Dioxide 22.7 L, Anion Gap 17.7 H, BUN 25 H, Creatinine 1.64 H, Est GFR (Non-Af Amer) 43 L, BUN/Creatinine Ratio 15.2, Random Glucose 163 H D, Calcium 8.8, Calcium Adj for Albumin 9.0, Total Bilirubin 0.4, AST 26, ALT 19, Alkaline Phosphatase 71, Total Protein 6.2, Albumin 3.3 L 05/20/20 08:03: Lactic Acid, Venous 3.5 H* 05/20/20 12:22: Lactic Acid, Venous 2.3 H* Discharge Location: Home Disposition: Home self-care Condition: Fair Discharge Activity: Activity as tolerated Discharge Diet: Resume usual diet Referrals: Jemima Baron DO [Staff Physician] - Prescriptions (Any new or edited meds): Azithromycin 500 mg PO 3XW #45 tab Transmission Status: Pending to [facility] predniSONE [Prednisone] 20 mg PO DAILY #30 tab Transmission Status: Pending to [facility] Complete Home Medications List: Complete Home Medication List: Albuterol Sulfate [Albuterol Sulfate 2.5 MG/0.5ML] 1 vial IH Q4H #30 vial 09/14/17 Albuterol Sulfate/Ipratropium [Duoneb 2.5-0.5MG/3ML Soln] 3 ml IH QID #150 vial 11/06/17 Albuterol Sulfate [Albuterol Sulfate 0.63 MG/3ML] 0.63 mg IH Q4H PRN #120 vial.[facility] 03/27/20 Budesonide 1 mg IH Q6H PRN #40 ampul.[facility] 03/27/20 predniSONE [Prednisone] 5 mg PO DAILY 05/19/20 Azithromycin 500 mg PO 3XW #45 tab 05/20/20 predniSONE [Prednisone] 20 mg PO DAILY #30 tab 05/20/20 Forms: Patient Portal Registration
[2020-05-20 16:05] VITALS: BP 137/67
== END 2020-05-20 16:50 | disposition home or self-care (01) ==
LOC: ER 18:58 → MS 22:55 → INTOOBSV 22:55 → MS 23:20
PROVIDERS: ADMIT Family Medicine; ATTEND Family Medicine

== ENCOUNTER 2020-06-10 22:26 | Observation (INO) ==
[2020-06-10] MEDS ORDERED: ALBUTEROL SULFATE/IPRATROPIUM 3 ML NEBU IH ONE (22:32)
--- NOTE | 2020-06-10 22:49 | ERNOTE ---
Dyspnea - General Presenting Symptoms: shortness of breath Time Seen by Provider: 06/10/20 22:31 Source: patient, family Exam Limitations: clinical condition - Immun/Allergies/Home Medications Immunizations: IMMUNIZATION HX Immunizations Up to Date Yes History of Influenza Vaccine Yes Hx Pneumococcal Vaccination Yes Allergies/Adverse Reactions: Allergies No Known Allergies Allergy (Verified 05/30/20 10:44) Home Medications: HOME MEDICATIONS Albuterol Sulfate [Albuterol Sulfate 2.5 MG/0.5ML] 1 vial IH Q4H #30 vial 09/14/17 [Last Taken 05/19/20] Albuterol Sulfate/Ipratropium [Duoneb 2.5-0.5MG/3ML Soln] 3 ml IH QID #150 vial 11/06/17 [Last Taken 05/19/20] Budesonide 1 mg IH Q6H PRN #40 ampul.neb 03/27/20 [Last Taken 05/19/20] Azithromycin 500 mg PO 3XW #45 tab 05/20/20 [Last Taken Unknown] - History of Present Illness Narrative: Patient presents with shortness of breath worsening today. He states about 3 weeks ago he was seen by Dr. Baron who gave him azithromycin and a long prednisone taper. He states he is just finishing those medications and started worsening yesterday but really got bad today and his encouraged him to come into the ER this evening. Upon presentation patient was very dyspneic audibly wheezing and in respiratory distress. Severity: moderate, severe Treatment SLOT SERVICE SPECIALIST: by patient, albuterol - 4 or 5 times today Frequency of episodes: Reports: frequent episodes Modifying Factors - (Improves): Reports: albuterol - States it only helped him for about 10 minutes at a time Medical History (Last Reviewed 06/11/20 @ 01:56 by Sandra Reinoso RN) COPD (chronic obstructive pulmonary disease) Hx of fracture of ankle Pneumonia Surgical History: Surgical History (Last Reviewed 06/11/20 @ 01:56 by Sandra Reinoso RN) History of prostate surgery History of tonsillectomy and adenoidectomy Previous back surgery Family History: Family History (Last Reviewed 05/30/20 @ 10:44 by Carole Easton CMA) Other Family history non-contributory Social History: (Last Reviewed 06/10/20 @ 22:52 by Lala Millard RN) Social History: adopted: No foster care: No prison: No Marital status: lives independently: Yes household members: spouse current occupational status: retired Tobacco: Smoking Status: Former smoker Years smoked: 60 Years smoked comment: pt states he quit 2 years ago Alcohol: alcohol intake: never Substance Use: substance use type: does not use Physical Exam - Physical Exam General Appearance: Present: wd/wn, alert, moderate distress Head Exam: Present: normal inspection, no evidence of injury Neck: Present: normal inspection, nontender, supple Respiratory: Present: respiratory distress, accessory muscle use, decreased breath sounds, wheezing Cardiovascular/Chest: Present: no murmur, tachycardia Gastrointestinal/Abdominal: Present: nondistended, soft Extremity Exam: Present: normal inspection, no edema Neurological Exam: Present: alert, oriented, normal mood/affect Skin Exam: Present: normal color, warm/dry Lymphatic Exam: Present: no adenopathy Progress - Results and Orders Patient's Lab Results:: I have reviewed the patient's lab results. Results and Orders: Laboratory Tests 06/10/20 06/10/20 06/10/20 22:35 22:35 22:35 WBC 10.0 Hgb 16.2 Hct 50.9 Plt Count 229 Sodium 137 Potassium 4.5 Chloride 103 BUN 23 Creatinine 1.43 H Est GFR (Non-Af Amer) 50 L Random Glucose 99 Lactic Acid, Venous 1.6 Calcium 9.4 Total Bilirubin 0.7 AST 22 ALT 22 Alkaline Phosphatase 75 Troponin I Less than 0.017 B-Natriuretic Peptide 295 Laboratory Tests 06/10/20 23:45 SARS-CoV-2 (PCR) Not detected - Vital Signs Patient's Vital Signs:: I have reviewed the patient's vital signs. - EKG EKG #1 EKG: NSR - with 1st degree AV block, premature ventricular contraction - X-Ray X-Ray #1 X-Ray: chest Interpretation: Interp. by me X-ray Comments: There may be an early infiltrate in the right lower lobe. No pulmonary edema. Cardiac silhouette appears normal. No pneumothorax - Progress/Reassessment Progress:: Improved Progress Note-Subjective: Patient was given a DuoNeb treatment soon after arrival and has been doing much better since that time. Patient is still somewhat dyspneic but can talk in full sentences. He continues to require 2 L per nasal cannula to keep his satura tions 93 to 95% 06/11/20 00:[address] Baron she agrees to admit the patient for acute exacerbation of COPD 06/11/20 00:02 06/11/20 00:53 Patient's blood pressures continue to be elevated. I expected that the patient's blood pressure would come down as he calmed down but did not. We will give him 2.5 mg of amlodipine and see if that will help his blood pressure go down overnight. Departure Clinical Impression: COPD exacerbation - Departure Disposition: Still a patient Condition: Stable
[2020-06-10 22:53] LABS: Hematocrit 50.9 % (42.0-52.0); Hemoglobin 16.2 gm/dL (13.5-18.0); Mean Cell Volume 90.2 fl (78-100); Mean Corpuscular Hemoglobin 28.7 pg (27-31); Mean Corpuscular Hgb Conc 31.8 g/dl (32-36); Mean Platelet Volume 9.3 fl (8-11.3); Neutrophil # 5.5 K/mm3 (1.3-6.0); Neutrophil % 55.6 % (42-75.0); Platelet Count 229 K/mm3 (150-450); Red Blood Count 5.64 M/mm3 (4.7-6.0); Red Cell Distribution Width 16.3 % (11.5-14.0)
[2020-06-10 23:07] LABS: Troponin I Less than 0.017 ng/mL (0.00-0.10)
[2020-06-10 23:09] LABS: ALT 22 U/L (19-67); AST 22 U/L (0-48); Albumin * 3.4 gm/dl (3.4-5.0); Alkaline Phosphatase * 75 U/L (50-170); Anion Gap 13.1 mmol/L (6.8-13.8); BNP * 295 pg/mL (5-650); BUN/Creatinine Ratio 16.1 (9.0-21.6); Bilirubin, Total 0.7 mg/dL (0.0-1.1); Blood Urea Nitrogen 23 mg/dL (6-23); Ca. Corrected For Albumin 9.6 mg/dL (8.4-10.2); Calcium * 9.4 mg/dL (7.9-10.9); Carbon Dioxide 25.4 mmol/L (24-32.6); Chloride 103 mmol/L (97-106); Glucose * 99 mg/dL (70-110); Potassium 4.5 mmol/L (3.4-4.6); Sodium 137 mmol/L (132-142); Total Protein 7.2 gm/dL (6.2-8.2)
[2020-06-10] MEDS ORDERED: METHYLPREDNISOLONE SOD SUCC/PF 125 MG/2 ML VIAL IV ONE (23:56)
[2020-06-11] MEDS ORDERED: LEVOFLOXACIN IN DEXTROSE 5 % 750 MG/150 ML BAG IV ONE
[2020-06-11] MEDS ORDERED: AMLODIPINE BESYLATE 2.5 MG TABLET PO ONE (00:51)
[2020-06-11] MEDS ORDERED: amLODIPine BESYLATE 5 MG TABLET ONE (01:18)
[2020-06-11] MEDS ORDERED: ALBUTEROL SULFATE 2.5 MG/0.5 ML VIAL.NEB IH SCH (07:00)
[2020-06-11] MEDS: METHYLPREDNISOLONE SOD SUCC/PF 125 MG/2 ML VIAL IV SCH ×2 (07:38→13:59)
[2020-06-11] MEDS: BUDESONIDE 0.5 MG/2 ML VIAL.NEB IH PRN ×2 (07:48→15:56)
[2020-06-11] MEDS: ALBUTEROL SULFATE/IPRATROPIUM 3 ML NEBU IH PRN ×2 (07:49→15:55)
[2020-06-11] MEDS: ALBUTEROL SULFATE 2.5 MG/0.5 ML VIAL.NEB IH PRN ×2 (07:50→15:56)
--- NOTE | 2020-06-11 08:09 | HP ---
Chief Complaint - Chief Complaint Date of Service: 06/11/20 Time of Service: 08:08 Chief Complaint: SOB History of Present Illness: Patient with PMHx of COPD on chronic azithromycin and prednisone presented after acute SOB, not improved with home nebulizer treatments. He was admitted overnight earlier this month for a similar presentation, and he reports this is the 3rd time this year he has had SOB similar to this. He feels like his chest starts tightening as his prednisone dose decreases. He started coughing yesterday, and denies fevers. His appetite has been decreased for a few days. In the ED, he was tachypneic in the low 20's, with normal heart rate. ERP reported significant increased work of breathing. Pulse ox was 84%, improved to 90's with 2L via NC. Workup showed normal WBC, lactate normal, troponin not elevated. Awaiting official read on the CXR, but I do not see a definite process. No significant change on EKG. He was given 125 mg solumedrol and levaquin in the ED. He reports feeling better this morning, but is still having increased work of breathing. He has been reluctant to carry out his pulmnologist's wishes in the past, but reports today that something needs to be done differently to keep this from happening. Medical History (Last Reviewed 06/11/20 @ 01:56 by Sandra Reinoso RN) COPD (chronic obstructive pulmonary disease) Hx of fracture of ankle Pneumonia Surgical History: Surgical History (Last Reviewed 06/11/20 @ 01:56 by Sandra Reinoso RN) History of prostate surgery History of tonsillectomy and adenoidectomy Previous back surgery Family History: Family History (Last Reviewed 05/30/20 @ 10:44 by Carole Easton CMA) Other Family history non-contributory Social History: (Last Reviewed 06/10/20 @ 22:52 by Lala Millard RN) Social History: adopted: No foster care: No assisted: No Marital status: lives independently: Yes household members: spouse current occupational status: retired Tobacco: Smoking Status: Former smoker Years smoked: 60 Years smoked comment: pt states he quit 2 years ago Alcohol: alcohol intake: never Substance Use: substance use type: does not use Review Of Systems (GEN) - Review of Systems Generalized/Overall Review: Absent: Fever Respiratory: Present: Cough, Shortness of Breath, Wheezing Cardiac: Absent: Edema Abdominal: Present: Other - decreased appetite Genitourinary: Present: No Symptoms Reported Immunizations: IMMUNIZATION HX Immunizations Up to Date Yes History of Influenza Vaccine More Information Required Hx Pneumococcal Vaccination More Information Required Allergies/Adverse Reactions: Allergies Allergy/AdvReac Type Severity Reaction Status Date / Time No Known Allergies Allergy Verified 05/30/20 10:44 Home Medications: HOME MEDICATIONS Albuterol Sulfate [Albuterol Sulfate 2.5 MG/0.5ML] 1 vial IH Q4H #30 vial 09/14/17 [Last Taken 05/19/20] Albuterol Sulfate/Ipratropium [Duoneb 2.5-0.5MG/3ML Soln] 3 ml IH QID #150 vial 11/06/17 [Last Taken 05/19/20] Budesonide 1 mg IH Q6H PRN #40 ampul.neb 03/27/20 [Last Taken 05/19/20] Azithromycin 500 mg PO 3XW #45 tab 05/20/20 [Last Taken Unknown] Exam - Exam Vital Signs: Vital Signs - Last Taken Temp 36.5 C 06/11/20 07:18 Pulse 68 06/11/20 07:18 Resp 24 H 06/11/20 07:50 BP 177/94 H 06/11/20 07:18 Pulse Ox 95 06/11/20 07:50 Constitutional: Present: Alert, Cooperative, Elderly Respiratory: Present: lungs clear, decreased breath sounds, No rales, No wheezing, other - increased work of breathing. Using 1L via NC.. Absent: crackles, rhonchi Abdomen: Present: soft, nontender Extremity: Absent: lower extremity edema Eye contact: Present: cooperative, good eye contact Diagnostic Studies: Abnormal Lab Results 06/10/20 06/10/20 Range/Units 22:35 22:35 MCHC 31.8 L (32-36) g/dl RDW 16.3 H (11.5-14.0) % Immature Gran % (Auto) 0.70 H (0.001-0.429) % Immature Gran # (Auto) 0.07 H (0.000-0.0310) K/mm3 Monocytes % 11.2 H (0.0-9) % Eosinophils % 4.3 H (0.0-3.0) % Basophils % 1.3 H (0.0-1.0) % Monocytes # 1.1 H (0.0-1.0) k/mm3 Creatinine 1.43 H (0.4-1.4) mg/dL Est GFR (Non-Af Amer) 50 L (60-130) mL/min Laboratory Results WBC 10.0 K/mm3 (4.0-10.5) 06/10/20 22:35 RBC 5.64 M/mm3 (4.7-6.0) 06/10/20 22:35 Hgb 16.2 gm/dL (13.5-18.0) 06/10/20 22:35 Hct 50.9 % (42.0-52.0) 06/10/20 22:35 MCV 90.2 fl (78-100) 06/10/20 22:35 MCH 28.7 pg (27-31) 06/10/20 22:35 MCHC 31.8 g/dl (32-36) L 06/10/20 22:35 RDW 16.3 % (11.5-14.0) H 06/10/20 22:35 Plt Count 229 K/mm3 (150-450) 06/10/20 22:35 MPV 9.3 fl (8-11.3) 06/10/20 22:35 Immature Gran % (Auto) 0.70 % (0.001-0.429) H 06/10/20 22:35 Immature Gran # (Auto) 0.07 K/mm3 (0.000-0.0310) H 06/10/20 22:35 Neutrophils % 55.6 % (42-75.0) 06/10/20 22:35 Lymphocytes % 26.9 % (20-51) 06/10/20 22:35 Monocytes % 11.2 % (0.0-9) H 06/10/20 22:35 Eosinophils % 4.3 % (0.0-3.0) H 06/10/20 22:35 Basophils % 1.3 % (0.0-1.0) H 06/10/20 22:35 Nucleated RBC % 0.0 k/mm3 (0-1) 06/10/20 22:35 Neutrophils # 5.5 K/mm3 (1.3-6.0) 03/29/21 22:35 Lymphocytes # 2.68 k/mm3 (1.5-3.5) 06/10/20 22:35 Monocytes # 1.1 k/mm3 (0.0-1.0) H 06/10/20 22:35 Eosinophils # 0.4 k/mm3 (0.0-0.7) 06/10/20 22:35 Absolute Basophils 0.1 k/mm3 (0.0-0.1) 06/10/20 22:35 Sodium 137 mmol/L (132-142) 06/10/20 22:35 Plasma Sodium 137 mmol/L (130-142) 06/10/20 22:35 Potassium 4.5 mmol/L (3.4-4.6) 06/10/20 22:35 Chloride 103 mmol/L (97-106) 06/10/20 22:35 Carbon Dioxide 25.4 mmol/L (24-32.6) 06/10/20 22:35 Anion Gap 13.1 mmol/L (6.8-13.8) 06/10/20 22:35 BUN 23 mg/dL (6-23) 06/10/20 22:35 Creatinine 1.43 mg/dL (0.4-1.4) H 06/10/20 22:35 Est GFR (Non-Af Amer) 50 mL/min (60-130) L 06/10/20 22:35 BUN/Creatinine Ratio 16.1 (9.0-21.6) 06/10/20 22:35 Random Glucose 99 mg/dL (70-110) 06/10/20 22:35 Lactic Acid, Venous 1.6 mmol/L (0.4-2.0) 06/10/20 22:35 Calcium 9.4 mg/dL (7.9-10.9) 06/10/20 22:35 Calcium Adj for Albumin 9.6 mg/dL (8.4-10.2) 06/10/20 22:35 Total Bilirubin 0.7 mg/dL (0.0-1.1) 06/10/20 22:35 AST 22 U/L (0-48) 06/10/20 22:35 ALT 22 U/L (19-67) 06/10/20 22:35 Alkaline Phosphatase 75 U/L (50-170) 06/10/20 22:35 Troponin I Less than 0.017 ng/mL (0.00-0.10) 06/10/20 22:35 B-Natriuretic Peptide 295 pg/mL (5-650) 06/10/20 22:35 Total Protein 7.2 gm/dL (6.2-8.2) 06/10/20 22:35 Albumin 3.4 gm/dl (3.4-5.0) 06/10/20 22:35 SARS-CoV-2 (PCR) Not detected (NotDetected) 06/10/20 23:45 Assessment/Plan - Narrative Narrative: Will continue 60 mg IV solumedrol twice today, and will change to prednisone tomorrow. His oxygen requirement is only 1 L currently, but his is still having increased work of breathing. He reports still feeling SOB when his blood levels say his oxygen is in the 90's. He is currently at 95% on 1 L, with a respir atory rate of 20. Lung sounds are diminished, but clear. Anticipate DC in greater than 24 hours. Echocardiogram last year showed EF of 55-60%, RVSP 34%, normal wall motion. Continue duoneb treatments and albuterol. Will try adding spiriva. He was prescribed oxygen in the past, but he didn't feel like it was helpful. Pulmonology note from 06/2019 stated he was previously prescribed stiolto, but did not use it as prescribed. This is his 3rd ED visit since 03/15/20, and 2nd hospitalization. That note also states he is severely debilitated. He has been on steroids chronically. Pulmonology mentioned outpatient Palliative care consult, but we do not have that available here. He has declined seeing pulmonology in the last year, but will encourage him to do so again after DC. - Assessment/Plan (1) Acute exacerbation of chronic obstructive pulmonary disease (COPD) Problem: Acute (2) Elevated blood pressure reading without diagnosis of hypertension Assessment: He does not have a diagnosis of hypertension, but BP has been high overnight. Likely due to his discomfort. Will administer an antihypertensive if he consistently remains greater than 180/100. BP was 137/74 at office visit earlier this month. Problem: Acute
[2020-06-11] MEDS: ENOXAPARIN SODIUM 40 MG/0.4 ML SYRG SC SCH (09:02)
[2020-06-11] MEDS: DOXYCYCLINE HYCLATE 100 MG TABLET PO SCH ×2 (10:48→20:04)
[2020-06-11] MEDS: TIOTROPIUM BROMIDE 5 CAP INHALER IH SCH (10:49)
[2020-06-12] MEDS: ALBUTEROL SULFATE/IPRATROPIUM 3 ML NEBU IH PRN ×2 (04:40→16:32)
[2020-06-12] MEDS: BUDESONIDE 0.5 MG/2 ML VIAL.NEB IH PRN (04:41)
[2020-06-12] MEDS: DOXYCYCLINE HYCLATE 100 MG TABLET PO SCH (08:46)
[2020-06-12] MEDS: ENOXAPARIN SODIUM 40 MG/0.4 ML SYRG SC SCH (08:46)
[2020-06-12] MEDS: TIOTROPIUM BROMIDE 5 CAP INHALER IH SCH (08:47)
[2020-06-12] MEDS ORDERED: predniSONE 20 MG TABLET PO SCH (09:00)
[2020-06-12] MEDS ORDERED: AZITHROMYCIN 500 MG PO SCH (09:00)
--- NOTE | 2020-06-12 09:25 | DS ---
(1) Acute exacerbation of chronic obstructive pulmonary disease (COPD) Problem: Resolved (2) Elevated blood pressure reading without diagnosis of hypertension Problem: Acute Date of Discharge:: 06/12/20 Hospital Course: Patient with PMHx of COPD on chronic azithromycin and prednisone presented after acute SOB, not improved with home nebulizer treatments. He was admitted overnight earlier this month for a similar presentation, and he reports this is the 3rd time this year he has had SOB similar to this. He feels like his chest starts tightening as his prednisone dose decreases. He started coughing the day prior to admission, and denies fevers. His appetite was decreased for a few days. In the ED, he was tachypneic in the low 20's, with normal heart rate. ERP reported significant increased work of breathing. Pulse ox was 84%, improved to 90's with 2L via NC. Workup showed normal WBC, lactate normal, troponin not elevated. No acute findings on his CXR. He was given 125 mg solumedrol and levaquin in the ED. On the floor, he was given 2 doses of 60 mg IV solumedrol, switched to doxycycline, and started spiriva. He was able to wean off oxygen the afternoon of admission. He felt comfortable going home on the day of DC. BP was high during his stay, felt to be due to respiratory discomfort. His BP was fine during his outpatient visit, and will continue to follow in the clinic. He was previously established with pulmonology in [facility], and did not continue after his provider left the area. Encouraged him to do so, since his COPD appears to be worsening. He previously qualified for oxygen at home, but he didn't think it was helpful. He also was previously prescribed stiolto, but didn't feel like that was helpful either. He agrees to continuing spiriva after DC, in an effort to avoid further ED visits. Palliative care consult recommended by his wellness health coach for severe debilitation, but does not appear to have been carried out. Procedures Performed: none Results and Findings: Pending Mircobiology Results 06/10/20 23:10 Blood Blood Culture - Preliminary NO GROWTH 24 HOURS 06/10/20 22:35 Blood Blood Culture - Preliminary NO GROWTH 24 HOURS Lab Pending Results 06/10/20 22:35: Sodium 137, Plasma Sodium 137, Potassium 4.5, Chloride 103, Carb on Dioxide 25.4, Anion Gap 13.1, BUN 23, Creatinine 1.43 H, Est GFR (Non-Af Amer) 50 L, BUN/Creatinine Ratio 16.1, Random Glucose 99, Calcium 9.4, Calcium Adj for Albumin 9.6, Total Bilirubin 0.7, AST 22, ALT 22, Alkaline Phosphatase 75, Troponin I Less than 0.017, B-Natriuretic Peptide 295, Total Protein 7.2, Albumin 3.4 06/10/20 22:35: WBC 10.0, RBC 5.64, Hgb 16.2, Hct 50.9, MCV 90.2, MCH 28.7, MCHC 31.8 L, RDW 16.3 H, Plt Count 229, MPV 9.3, Immature Gran % (Auto) 0.70 H, Immature Gran # (Auto) 0.07 H, Neutrophils % 55.6, Lymphocytes % 26.9, Monocytes % 11.2 H, Eosinophils % 4.3 H, Basophils % 1.3 H, Nucleated RBC % 0.0, Neutrophils # 5.5, Lymphocytes # 2.68, Monocytes # 1.1 H, Eosinophils # 0.4, Absolute Basophils 0.1 06/10/20 22:35: Lactic Acid, Venous 1.6 06/10/20 23:45: SARS-CoV-2 (PCR) Not detected Discharge Location: Home Disposition: Home self-care Condition: Stable Discharge Activity: Activity as tolerated Discharge Diet: General/regular food Referrals: Jemima Baron DO [Primary Care Provider] - Additional Patient Instructions (free text): Follow up with Dr. Baron WednesdayJune 21 at 11:15 a.m. Please also schedule with pulmonology at [facility] within the next month. Prescriptions (Any new or edited meds): Albuterol Sulfate [Albuterol Sulfate 2.5 MG/0.5ML] 1 vial IH Q4H #30 vial Transmission Status: Pending to [id number] Budesonide 1 mg IH Q6H PRN #40 ampul.neb PRN Reason: Dyspnea Transmission Status: Pending to [id number] #[id number] predniSONE [Prednisone] 20 mg PO DAILY #49 tab Transmission Status: Pending to [facility] Tiotropium [place] [Spiriva] 1 cap IH DAILY #60 cap Transmission Status: Pending to [facility] Doxycycline Hyclate [Vibratab] 100 mg PO BID #12 tab Transmission Status: Pending to [facility] Complete Home Medications List: Complete Home Medication List: Albuterol Sulfate/Ipratropium [Duoneb 2.5-0.5MG/3ML Soln] 3 ml IH QID #150 vial 11/06/17 Azithromycin 500 mg PO 3XW #45 tab 05/20/20 Albuterol Sulfate [Albuterol Sulfate 2.5 MG/0.5ML] 1 vial IH Q4H #30 vial 06/12/20 Budesonide 1 mg IH Q6H PRN #40 ampul.neb 06/12/20 Doxycycline Hyclate [Vibratab] 100 mg PO BID #12 tab 06/12/20 Tiotropium [place] [Spiriva] 1 cap IH DAILY #60 cap 06/12/20 predniSONE [Prednisone] 20 mg PO DAILY #49 tab 06/12/20 Forms: Patient Portal Registration
[2020-06-12 18:06] VITALS: BP 171/82
== END 2020-06-12 16:50 | disposition home or self-care (01) ==
LOC: ER 22:26 → MS 06-11 00:45 → INTOOBSV 06-11 00:45 → MS 06-11 01:10
PROVIDERS: ADMIT Family Medicine; ATTEND Family Medicine